=== PATIENT | male | born 1995 | race Caucasian/White ===

== ENCOUNTER 2018-12-08 15:27 | Emergency (ER) | payer BC ==
[~2018-12-08] VITALS: Ht 177.8 cm; Wt 75.0 kg
[2018-12-08 15:34] VITALS: BP 100/60
[2018-12-08] MEDS ORDERED: LIDOCAINE-MPF 1%, 5ML ONE (15:40)
[2018-12-08] MEDS ORDERED: DIPH,PERTUSS(ACELL),TET VAC/PF 0.5 ML IM-VACC ONE ×2 (15:41→16:00)
[2018-12-08] MEDS ORDERED: LIDOCAINE-MPF 1%, 5ML INFIL ONE (16:00)
--- NOTE | 2018-12-08 16:05 | NUR ---
Patient given wound care & discharge instructions and they have confirmed that they understand the instructions. Patient ambulatory with steady gait.
[2018-12-08] MEDS ORDERED: BACITRACIN ZINC OINT 500U/GM, 0.9 GM ONE (16:08)
== END 2018-12-08 16:20 | disposition home or self-care (01) ==
LOC: ED 16:10
DX: S61.412A Laceration without foreign body of left hand, initial encounter (principal); Z90.89 Acquired absence of other organs; X58.XXXA Exposure to other specified factors, initial encounter; Y93.89 Activity, other specified; Y92.009 Unspecified place in unspecified non-institutional (private) residence as the place of occurrence of the external cause; Y99.8 Other external cause status
CPT/HCPCS: 12041; 90471; 90715; 99284